=== PATIENT | male | born 1965 | race Caucasian/White ===

== ENCOUNTER 2018-04-22 15:16 | Emergency (ER) | payer OTHER ==
[2018-04-22] MEDS ORDERED: ACETAMINOPHEN 325 MG TAB PO ONE (15:33)
[2018-04-22] MEDS ORDERED: Diph,Pert(Acell),Tet Vac 0.5 ML SYR IM ONE (15:37)
--- NOTE | 2018-04-22 15:37 | Emergency Department Record ---
History of Present Illness - General Chief Complaint: Fall Injury Stated Complaint: FALL Time Seen by Provider: 04/22/18 15:27 Source: Patient Mode of Arrival: Ambulatory Limitations: No limitations - History of Present Illness Initial Comments: The patient is here due to falling and injuring his back and R lower leg. He was standing on a box about 3-4 feet in the air and fell backwards landing on his low back and injuring his R proximal lower leg below the knee. He is able to walk but is having mild pain in those locations. There was no head or neck injury, CP, AP, or SOB. MD Complaint: Fall Onset/Timin -: Hour(s) Fall From: Standing When Fall Occurred: [address] Fall Witnessed: Yes, by family Place Fall Occurred: Home Loss of Consciousness: None Prolonged Down Time?: No Symptoms Prior to Fall: None Location: Back Severity: Mild Severity scale (1-10): 3 Quality: Aching Context: Tripped/slipped - [place] Coma Scale Eye Response: (4) Open spontaneously Motor Response: (6) Obeys commands Verbal Response: (5) Oriented Snyder Total: 15 - Related Data Allergies Allergy/AdvReac Type Severity Reaction Status Date / Time pseudoephedrine HCl Allergy Intermediate RASH Verified 04/22/18 15:22 [From Shreya] amoxicillin Allergy Mild RASH Verified 04/22/18 15:22 Travel Screening - Travel/Exposure Within Last 30 Days Have you traveled within the last 30 days?: Yes Location Detail:: [place], [place] - Travel/Exposure Within Last Year Have you traveled outside the [place] in the last year?: No - Additonal Travel Details Have you been exposed to anyone with a communicable illness?: No - Travel Symptoms Symptom Screening: None Review of Systems Constitutional: Denies: Chills, Fever Eyes: Denies: Eye discharge ENT: Denies: Congestion Respiratory: Denies: Cough, Dyspnea Past Medical History - SOCIAL HISTORY Smoking Status: Former smoker Alcohol Use: Rare Drug Use: None - RESPIRATORY Hx Respiratory Disorders: Yes Hx Sleep Apnea: Yes Hx of CPAP: Yes - CARDIOVASCULAR Hx Cardio Disorders: Yes Hx Hypertension: Yes - NEURO Hx Neuro Disorders: Yes Hx Seizures: Yes - GI Hx GI Disorders: No - Hx Genitourinary Disorders: No - ENDOCRINE Hx Endocrine Disorders: No - MUSCULOSKELETAL Hx Musculoskeletal Disorders: No - PSYCH Hx Psych Problems: Yes Hx Anxiety: Yes - HEMATOLOGY/ONCOLOGY Hx Hematology/Oncology Disorders: Yes Hx Cancer: Yes (Skin) Hx Chemotherapy: No Hx Radiation Therapy: No Family Medical History Any Significant Family History?: No Physical Exam - General General Appearance: Alert, Oriented x3, Cooperative, No acute distress - Head Head exam: Atraumatic, Normocephalic, Normal inspection - Eye Eye exam: Normal appearance, PERRL - Neck Neck exam: Normal inspection, Full ROM. negative: Tenderness (Neg posterior tenderness.) - Respiratory Respiratory exam: Normal lung sounds bilaterally. negative: Respiratory distress - Cardiovascular Cardiovascular Exam: Regular rate, Normal rhythm, Normal heart sounds - GI/Abdominal GI/Abdominal exam: Soft, Normal bowel sounds. negative: Tenderness - Extremities Extremities exam: Full ROM. negative: Normal inspection (There is mild proximal anterior R tibial tenderness with a mild abrasion present.), Calf tenderness, Joint swelling Image of Full Body: 1 - Mild tenderness. 2 - Abrasion and mild tenderness. - Back Back exam: Reports: Normal inspection, Vertebral tenderness (There is mild L3-5 tenderness.) - Neurological Neurological exam: Alert, Normal gait. negative: Abnormal gait, Motor sensory deficit Course Vital Signs 04/22/18 15:23 Temperature 98.3 F Pulse Rate 74 Respiratory 16 Rate Blood Pressure 146/80 Pulse Ox 98 - Reevaluation(s) Reevaluation #1: I did discuss the neg xrays with the patient and the need to take his home pain medicines as needed. 04/22/18 16:23 Medical Decision Making - Data Complexity MDM Data: X-Ray Ordered and/or Reviewed - Radiology Data Radiology results: Report reviewed (R Tib/fib and Lumbar spine: Neg for acute changes.) Disposition Disposition: Discharge Clinical Impression: Lumbar contusion Qualifiers: Encounter type: initial encounter Qualified Code(s): S30.0XXA - Contusion of lower back and pelvis, initial encounter Contusion of leg, right Qualifiers: Encounter type: initial encounter Qualified Code(s): S80.11XA - Contusion of right lower leg, initial encounter Disposition: Home, Self-Care Condition: (2) Stable Instructions: Contusion in Adults (ED) Additional Instructions: Please take Tylenol for pain and keep the abrasions clean. Please see your family doctor next week for recheck and return to the ER for any worsening pain , swelling, or fever. Forms: Patient Portal Access Time of Disposition: 16:25 Quality - Quality Measures Quality Measures: N/A - Blood Pressure Screening View Details: Yes Does Patient Have Any of the Following: Active Dx of HTN Blood Pressure Classification: Hypertensive Reading Systolic Measurement: 144 Diastolic Measurement: 71 Screening for High Blood Pressure: Patient Exclusion, Hx of HTN [[id number]]
--- NOTE | 2018-04-24 13:39 | RADIOLOGY REPORT ---
EXAM: RIGHT TIBIA AND FIBULA HISTORY: RIGHT LOWER EXTREMITY LACERATION STATUS POST FALL. PAIN. TECHNIQUE: AP and lateral views of the right tibia and fibula were obtained. Comparison: None. FINDINGS: The patient is status post internal fixation of the medial and lateral malleoli. Orthopedic hardware remains and appears intact. There is no visible acute fracture or dislocation. There is no soft tissue air or radiopaque foreign body. IMPRESSION: NO FRACTURE OR FOREIGN BODY. JOB NUMBER: [id number] MTDD
--- NOTE | 2018-04-24 13:42 | RADIOLOGY REPORT ---
EXAM: LUMBAR SPINE, AP AND LATERAL VIEWS HISTORY: LOW BACK PAIN STATUS POST FALL. TECHNIQUE: AP and lateral views of the lumbar spine were obtained. Comparison: None. Encounter: Initial. FINDINGS: There are five lumbar vertebral segments. Disk space narrowing and end plate degenerative changes are present at the L1-L2 and L4-L5 levels. The vertebral body heights are maintained. There is no acute fracture or spondylolisthesis. Very minor dextroconvex curvature is present. IMPRESSION: 1. MILD MULTILEVEL DEGENERATIVE DISK DISEASE. 2. NO ACUTE LUMBAR SPINE PATHOLOGY IDENTIFIED. JOB NUMBER: [id number] MTDD
== END 2018-04-22 16:46 | disposition home or self-care (01) ==
LOC: ER 15:16
DX: S30.0XXA Contusion of lower back and pelvis, initial encounter (principal); S80.11XA Contusion of right lower leg, initial encounter; W17.89XA Other fall from one level to another, initial encounter; Y92.009 Unspecified place in unspecified non-institutional (private) residence as the place of occurrence of the external cause; I10 Essential (primary) hypertension
CPT/HCPCS: 72100; 90715; 96372; 99283; 99284